=== PATIENT | male | born 1960 | race Two or more races ===

== ENCOUNTER 2020-04-11 06:54 | Day surgery (SDC) | payer OTHER ==
[~2020-04-11] VITALS: Ht 160 cm; Wt 61.4 kg
[2020-04-11] MEDS ORDERED: SODIUM CHLORIDE 0.9% 1,000 ML IV ONE (07:30)
[2020-04-11 08:06] LABS: COVID AG,FIA SOURCE NASOPHARYNGEAL
[2020-04-11] MEDS ORDERED: FentaNYL CITRATE PF 100 MCG/2 ML VIAL ONE (08:44)
[2020-04-11] MEDS ORDERED: MIDAZOLAM HCL 5 MG/ML VIAL ONE (08:44)
[2020-04-11] MEDS ORDERED: MIDAZOLAM HCL 2 MG/2 ML VIAL ONE (08:45)
== END 2020-04-11 11:05 | disposition home or self-care (01) ==
LOC: SURGERY 06:54
PROVIDERS: ATTEND Surgery
DX: K52.89 Other specified noninfective gastroenteritis and colitis (principal); I10 Essential (primary) hypertension; K64.8 Other hemorrhoids; Z79.899 Other long term (current) drug therapy
CPT/HCPCS: 45380; 87426; 88305; C9803; J2250; J3010